=== PATIENT | male | born 1965 | race Two or more races ===

== ENCOUNTER 2022-10-20 13:26 | Emergency (ER) | payer BC ==
[~2022-10-20] VITALS: Ht 180.3 cm; Wt 91.0 kg
[2022-10-20 14:38] LABS: BASOPHILS % 0.7 % (0.0-2.0); EOSINOPHILS % 1.2 % (0.0-5.0); HEMATOCRIT. 39.4 % (42.0-52.0); HEMOGLOBIN. 14.2 g/dL (14.0-18.0); LYMPHOCYTES % 22.6 % (20.0-50.0); MEAN CORPUSCULAR HEMOGLOBIN 31.4 pg (28.0-32.0); MEAN CORPUSCULAR VOLUME 87.4 fL (80.0-94.0); MEAN PLATELET VOLUME 10.1 fl (7.4-10.4); MONOCYTES % 7.1 % (2.0-8.0); NEUTROPHILS % 68.4 % (40.0-76.0); PLATELET 166 x1000/uL (130-400); RED BLOOD CELL COUNT 4.51 mill/uL (4.7-6.1)
[2022-10-20 14:59] LABS: CHLORIDE 106 mEq/L (98-107)
[2022-10-20 15:13] LABS: ETHANOL BLOOD < 10 mg/dL
[2022-10-20 15:48] VITALS: BP 136/89
== END 2022-10-20 15:56 | disposition home or self-care (01) ==
LOC: ER 13:26
DX: I47.1 Supraventricular tachycardia (principal); E78.00 Pure hypercholesterolemia, unspecified
CPT/HCPCS: 36415; 71045; 80053; 80320; 84443; 85025; 93005; 99285; G0480